=== PATIENT | male | born 1985 | race Caucasian/White ===

== ENCOUNTER 2022-05-27 22:27 | Emergency (ER) | payer OTHER ==
[~2022-05-27] VITALS: Ht 167.6 cm; Wt 87.1 kg
[2022-05-27 22:47] VITALS: BP_SYST 119
--- NOTE | 2022-05-27 22:58 | NUR ---
PT HERE C/O LT KNEE PAIN S/P FALL/INJURY WHILE PLAYING BASKET BALL AROUND 2129. PT STATED THAT HE FELL AND LANDED AND HIN LT KNEE AND HEARD POPPED. PT DENIES KO, DENIES HITTING HIS HEAD. PT ARRIVE HERE WITH CRUTCHES. PT SATATED HE HAD THE SAME SYMPTOMS 15 YRS AGO WHEN HE HAD HIS RT KNEE SURGERY. PMH:RT KNEE SURGERY 15 YRS AGO PT AAOX4, NOT IN ANY DISTRESS. PT REQUESTING FOR MRI TONIGHT, EXPLANIED TO PT THAT HE NEEDS TO BE SEEN FIRST BY ER AND HE VERBALIZED UNDERSTANDING
--- NOTE | 2022-05-28 01:43 | NUR ---
Patient ambulatory with crutches to chair 2 for evaluation and treatment
--- NOTE | 2022-05-28 01:55 | NUR ---
ER examining patient.
[2022-05-28] MEDS ORDERED: NAPR-1172 PO (02:00)
[2022-05-28] MEDS ORDERED: ACET-2634 PO (02:00)
[2022-05-28 02:08] VITALS: BP_SYST 118
--- NOTE | 2022-05-28 02:08 | NUR ---
Patient given written and verbal discharge instructions and verbalizes understanding. ER MD discussed with patient the results and care provided. Patient in stable condition.Rx of Tylenol and Naproxen given. Patient educated on pain management and to follow up with PMD. Opportunity for questions provided and answered.
== END 2022-05-28 02:08 | disposition home or self-care (01) ==
LOC: SED 22:27
DX: S83.92XA Sprain of unspecified site of left knee, initial encounter (principal); Z79.899 Other long term (current) drug therapy; W21.05XA Struck by basketball, initial encounter; Y93.67 Activity, basketball; Y92.89 Other specified places as the place of occurrence of the external cause; Y99.8 Other external cause status
CPT/HCPCS: 73564; 99283

== ENCOUNTER 2022-07-13 10:56 | Day surgery (SDC) | payer OTHER ==
[~2022-07-13] VITALS: Ht 167.6 cm; Wt 87.1 kg
[~2022-07-13 10:56] MED LIST: ACET-2634 PO; NAPR-1172 PO
[2022-07-13] MEDS ORDERED: BUPIVACAINE /DEX PF 0.75% SPINAL 2 ML AMP INJ ONE (12:24)
[2022-07-13] MEDS ORDERED: fentaNYL CITRATE 250 MCG/5 ML AMP IV ONE (12:24)
[2022-07-13] MEDS ORDERED: METOCLOPRAMIDE HCL 10 MG/2 ML VIAL IVP ONE (12:24)
[2022-07-13] MEDS ORDERED: ONDANSETRON HCL 4 MG/2 ML VIAL IVP ONE (12:24)
[2022-07-13] MEDS ORDERED: NS IRRIG SOLN 5000 ML IR ONE (12:24)
[2022-07-13] MEDS ORDERED: CEFAZOLIN 2 GM IVPB PREMIX 50 ML IV ONE (12:24)
[2022-07-13] MEDS ORDERED: LR 1,000 ML IV.SOLN IV ONE (12:24)
[2022-07-13] MEDS ORDERED: MIDAZOLAM HCL 5 MG/5 ML VIAL IVP ONE (12:24)
[2022-07-13] MEDS ORDERED: PROPOFOL 200MG/ 20ML VIAL (DIPRIVAN) IV ONE ×2 (12:24)
[2022-07-13] MEDS ORDERED: ePHEDrine sulfate 50 MG/ML VIAL IVP ONE (12:24)
[2022-07-13] MEDS ORDERED: NS IRRIG SOLN 1000 ML IR ONE (12:24)
[2022-07-13] MEDS ORDERED: ONDANSETRON HCL 4 MG/2 ML VIAL IVP PRN (15:00)
[2022-07-13] MEDS ORDERED: HYDROmorphone 1 MG/ML INJ. CARTRIDGE IVP PRN ×2 (15:00)
[2022-07-13] MEDS ORDERED: METOCLOPRAMIDE HCL 10 MG/2 ML VIAL IVP PRN (15:00)
[2022-07-13] MEDS ORDERED: fentaNYL CITRATE/PF 100 MCG/2 ML AMP IVP ONE (15:00)
[2022-07-13 18:30] VITALS: BP_SYST 106
== END 2022-07-13 18:30 | disposition home or self-care (01) ==
LOC: SDS 10:56
PROVIDERS: ATTEND Orthopaedic Surgery Sports Medicine
DX: S83.242A Other tear of medial meniscus, current injury, left knee, initial encounter (principal); M23.612 Other spontaneous disruption of anterior cruciate ligament of left knee; S83.412A Sprain of medial collateral ligament of left knee, initial encounter; X58.XXXA Exposure to other specified factors, initial encounter; Y93.67 Activity, basketball; Y92.89 Other specified places as the place of occurrence of the external cause; Y99.8 Other external cause status; Z20.822 Contact with and (suspected) exposure to COVID-19
CPT/HCPCS: 36415; 29888; 29882; U0003; J3490; J0690; J2765; J2250; J2405; J2704; J3010; J7120; C1713 ×7